=== PATIENT | male | born 1970 | race African-American/Black ===

== ENCOUNTER → 2019-03-02 | Day surgery (SDC) | payer BC ==
[~2019-03-02] MED LIST: AMLODIPINE BESYL5 MG PO; CEFAZOLIN SOD 1 GM/NS 50ML 100 ML IV ONE; FENTANYL CITRATE/PF 100MCG/2 ML INJ ONE; LIDOCAINE HCL 2% LOCAL INJ 5 ML SDV VIAL INJ ONE; LOSARTAN POTASS25 MG PO; MIDAZOLAM HCL 2 MG/2 ML VIAL ONE; PROPOFOL IV EMULSION 10 MG/ML 20 ML VIAL ONE
[2019-03-02 13:20] VITALS: BP 117/85
--- NOTE | 2019-03-04 16:04 | Operative Report ---
DATE OF PROCEDURE: 03/02/2019 SURGEON: David Woodard MD PREOPERATIVE DIAGNOSIS: Arthrofibrosis, right knee. POSTOPERATIVE DIAGNOSIS: Arthrofibrosis, right knee. OPERATIONS/PROCEDURE PERFORMED: The patient underwent manipulation under anesthesia of the right knee. LEAD PRESSMAN: There was no assistant guest services manager. ANESTHESIA: Monitored anesthesia care with IV sedation. IV FLUIDS: As per the Anesthesia record. COMPLICATIONS: There were no complications. BRIEF DISCUSSION OF THE PATIENT'S OPERATIVE PROCEDURE: Mr. Bridges was taken to the operating room and placed in a supine position on the operating table. Following induction of IV sedation, the patient's right lower extremity was examined under anesthesia. He was found to have a normal-appearing knee. Passive range of motion of the knee joint demonstrated knee motion from 0 degrees to approximately 100 degrees of flexion. The knee was gently manipulated under anesthesia. Pressure was placed across the knee joint in flexion and soft tissue adhesions were felt to give way. This resulted in improvement of the patient's knee flexion. At the end of the procedure, the patient's knee flexion was to 135 degrees of knee flexion. Extension remained full. The patient's IV sedation was reversed. The patient was taken to the postanesthesia care unit in stable condition. MD CARL Pascual/ALINEL /[id number]
== END | disposition home or self-care (01) ==
LOC: OR 10:49
PROVIDERS: ATTEND Specialist
DX: M24.661 Ankylosis, right knee (principal); M17.11 Unilateral primary osteoarthritis, right knee; S80.01XA Contusion of right knee, initial encounter; I10 Essential (primary) hypertension; K21.9 Gastro-esophageal reflux disease without esophagitis; X58.XXXA Exposure to other specified factors, initial encounter; Z01.810 Encounter for preprocedural cardiovascular examination; Z68.36 Body mass index [BMI] 36.0-36.9, adult
CPT/HCPCS: 27570; 93005; J0690; J2001; J2250; J2704; J3010